=== PATIENT | female | born 1940 | race Caucasian/White ===

== ENCOUNTER 2018-03-10 11:26 | Inpatient (IN) | payer MEDICARE, BC ==
[~2018-03-10] VITALS: Ht 157.5 cm; Wt 66.0 kg
[2018-03-10] MEDS: ASPIRIN 81MG TABLET PO SCH (09:00)
[2018-03-10] MEDS ORDERED: ASPIRIN 81MG TABLET PO ONE (12:15)
[2018-03-10] MEDS: NITROGLYCERIN 0.4MG TABLET SL SL PRN ×2 (12:33→16:03)
[2018-03-10 12:41] LABS: BASOPHILS % 0.5 % (0.0-2.0); EOSINOPHILS % 0.5 % (0.0-5.0); HEMATOCRIT. 43.1 % (36.0-48.0); HEMOGLOBIN. 14.4 g/dL (12.0-16.0); MEAN PLATELET VOLUME 8.7 fl (7.4-10.4); PLATELET 254 x1000/uL (130-400); RED BLOOD CELL COUNT 4.79 mill/uL (4.2-5.4); RED CELL DISTRIBUTION WIDTH 14.4 % (11.6-14.6)
[2018-03-10 12:45] LABS: CHLORIDE 103 mEq/L (98-107)
[2018-03-10 12:49] LABS: D-DIMER 0.41 mg/L FEU (<0.50); INR 0.9; PARTIAL THROMBOPLASTIN TIME 23.2 sec (23.4-31.0); PROTHROMBIN TIME 9.4 sec (9.1-11.1)
[2018-03-10] MEDS ORDERED: CLONIDINE 0.1MG TABLET PO PRN ×2 (13:00→13:30)
[2018-03-10] MEDS ORDERED: DEXTROSE 50% WATER 50ML SYRINGE IV PRN (13:00)
[2018-03-10] MEDS ORDERED: DOCUSATE SODIUM 100MG CAPSULE PO PRN (13:30)
[2018-03-10] MEDS ORDERED: IPRATROPIUM/ALBUTEROL 0.5-3(2.5)MG/3ML NEB INH PRN (13:30)
[2018-03-10] MEDS ORDERED: ENOXAPARIN 40MG/0.4ML SYR SUBCUT SCH (13:30)
[2018-03-10] MEDS ORDERED: ACETAMINOPHEN 325MG TABLET PO PRN (13:30)
[2018-03-10] MEDS ORDERED: ONDANSETRON HCL 4MG/2ML INJ IV PRN (13:30)
[2018-03-10 14:17] LABS: CLARITY URINE CLEAR (CLEAR); COLOR URINE YELLOW (YELLOW); KETONES URINE NEGATIVE (NEGATIVE); LEUKOCYTE ESTERASE URINE NEGATIVE (NEGATIVE); NITRITE URINE NEGATIVE (NEGATIVE); OCCULT BLOOD URINE NEGATIVE (NEGATIVE); PROTEIN URINE NEGATIVE (NEGATIVE); SPECIFIC GRAVITY URINE 1.007 (1.005-1.030); UROBILINOGEN URINE 0.2 E.U./dL (0.2-1.0)
[2018-03-10] MEDS ORDERED: METOPROLOL TARTRATE 25MG TABLET PO NR (16:24)
[2018-03-10] MEDS ORDERED: ENOXAPARIN 60MG/0.6ML SYR SUBCUT NR (18:00)
[2018-03-10] MEDS ORDERED: DEXT 5%/0.9% NACL 1,000 ML IV SCH (18:30)
[2018-03-10 20:00] VITALS: BP 119/62
[2018-03-10] MEDS: INSULIN LISPRO 100 UNITS/ML SUBCUT SCH (21:00)
[2018-03-10] MEDS: BLOOD SUGAR DIAGNOSTIC STRIP TEST SCH (21:00)
[2018-03-10] MEDS: LOSARTAN POTASSIUM 50 MG TABLET PO SCH (22:11)
[2018-03-10] MEDS: HYDROCODONE/ACETAMINOPHEN 5/325MG TABLET PO PRN (22:12)
[2018-03-10] MEDS: AMLODIPINE 5MG TABLET PO SCH (22:12)
[2018-03-10] MEDS: METOPROLOL TARTRATE 50MG TABLET PO SCH (22:12)
[2018-03-10] MEDS: NITROGLYCERIN OINT 1GM/INCH UDPKT TD SCH (22:13)
[2018-03-10 22:44] VITALS: BP 119/62
[2018-03-10] MEDS ORDERED: ROSU5TAB PO (23:10)
[2018-03-10] MEDS ORDERED: AMLO10TA80 PO (23:10)
[2018-03-10] MEDS ORDERED: CLON-457 PO (23:10)
[2018-03-10] MEDS ORDERED: CLOP75TA33 PO (23:10)
[2018-03-10] MEDS ORDERED: LOSA25TA12 PO (23:10)
[2018-03-10] MEDS ORDERED: METF-815 PO (23:10)
[2018-03-10] MEDS ORDERED: METF-414 PO (23:10)
[2018-03-11] VITALS (18 sets, daily range): BP systolic 91–157; BP diastolic 46–83
[2018-03-11] MEDS: HYDROCODONE/ACETAMINOPHEN 5/325MG TABLET PO PRN ×4 (02:23→22:34)
[2018-03-11] MEDS: BLOOD SUGAR DIAGNOSTIC STRIP TEST SCH ×4 (05:55→20:18)
[2018-03-11] MEDS: NITROGLYCERIN OINT 1GM/INCH UDPKT TD SCH ×3 (05:55→12:36)
[2018-03-11] MEDS: INSULIN LISPRO 100 UNITS/ML SUBCUT SCH ×4 (06:29→21:00)
[2018-03-11 06:49] LABS: BASOPHILS % 0.6 % (0.0-2.0); EOSINOPHILS % 2.5 % (0.0-5.0); HEMATOCRIT. 38.6 % (36.0-48.0); HEMOGLOBIN. 13.1 g/dL (12.0-16.0); LYMPHOCYTES % 29.9 % (20.0-50.0); MEAN CORPUSCULAR HEMOGLOBIN 30.4 pg (28.0-32.0); MEAN CORPUSCULAR VOLUME 89.6 fL (81.0-99.0); MEAN PLATELET VOLUME 8.8 fl (7.4-10.4); MONOCYTES % 9.9 % (2.0-8.0); NEUTROPHILS % 57.1 % (40.0-76.0); PLATELET 230 x1000/uL (130-400); RED BLOOD CELL COUNT 4.31 mill/uL (4.2-5.4); RED CELL DISTRIBUTION WIDTH 14.2 % (11.6-14.6)
[2018-03-11 06:51] LABS: CHLORIDE 107 mEq/L (98-107)
[2018-03-11 06:59] LABS: CREATINE KINASE MB FRACTION 1.5 ng/mL (0.5-3.6)
[2018-03-11 07:04] LABS: CREATINE KINASE 77 IU/L (26-192); LDL CHOLESTEROL 31 mg/dL (5-100)
[2018-03-11 07:05] LABS: HDL CHOLESTEROL 49 mg/dL (40-59)
[2018-03-11] MEDS: LOSARTAN POTASSIUM 50 MG TABLET PO SCH (09:00)
[2018-03-11] MEDS: AMLODIPINE 5MG TABLET PO SCH ×2 (09:00→20:18)
[2018-03-11] MEDS: ASPIRIN 81MG TABLET PO SCH (09:20)
[2018-03-11] MEDS: METOPROLOL TARTRATE 50MG TABLET PO SCH ×2 (09:20→20:18)
[2018-03-11] MEDS ORDERED: IODIXANOL 320MG/ML 100 ML BOTTLE IV ONE (09:51)
[2018-03-11] MEDS ORDERED: LIDOCAINE HCL 1% 20ML VIAL (Pyxis) INJ ONE (09:51)
[2018-03-11] MEDS ORDERED: ASPIRIN/SOD BICARB/CITRIC ACID 324MG TAB EFF ONE (09:51)
[2018-03-11] MEDS ORDERED: IOHEXOL-300 100 ML BOTTLE ONE (09:52)
[2018-03-11] MEDS ORDERED: MIDAZOLAM HCL 2 MG/2 ML VIAL ONE (10:08)
[2018-03-11] MEDS ORDERED: FENTANYL CITRATE/PF 50MCG/ML 2ML VIAL ONE (10:09)
[2018-03-11] MEDS ORDERED: ATROPINE SULFATE 1MG/10ML SYR IV PRN (11:00)
[2018-03-11] MEDS ORDERED: CLOPIDOGREL 75MG TABLET PO SCH (11:00)
[2018-03-11] MEDS ORDERED: SODIUM CHLORIDE 0.45% 1,000 ML IV ONE (11:00)
[2018-03-11] MEDS ORDERED: MORPHINE SULFATE 4 MG/ML CPJ (NOT FOR IM USE) IV PRN (11:00)
[2018-03-11] MEDS ORDERED: ONDANSETRON HCL 4MG/2ML INJ IV PRN (11:00)
[2018-03-11] MEDS ORDERED: ACETAMINOPHEN 325MG TABLET PO PRN (11:00)
[2018-03-11] MEDS ORDERED: CLOPIDOGREL 75MG TABLET ONE (11:02)
[2018-03-11] MEDS ORDERED: HEPARIN SODIUM 1,000 UNIT/1ML VIAL IV ONE (13:44)
[2018-03-11] MEDS ORDERED: NICARDIPINE 100MCG/ML 10ML VIAL (CATH LAB) IV ONE (13:44)
[2018-03-11] MEDS ORDERED: ADENOSINE 12MCG/ML 10ML VIAL (CATH LAB) IV ONE (13:44)
[2018-03-11] MEDS ORDERED: NITROGLYCERIN 50MCG/ML 10ML VIAL (CATH LAB) IV ONE (13:44)
[2018-03-12] VITALS (7 sets, daily range): BP systolic 129–159; BP diastolic 48–68
[2018-03-12] MEDS: HYDROCODONE/ACETAMINOPHEN 5/325MG TABLET PO PRN ×2 (05:05→09:54)
[2018-03-12] MEDS: INSULIN LISPRO 100 UNITS/ML SUBCUT SCH (06:53)
[2018-03-12] MEDS: BLOOD SUGAR DIAGNOSTIC STRIP TEST SCH (06:53)
[2018-03-12 07:18] LABS: BASOPHILS % 0.6 % (0.0-2.0); EOSINOPHILS % 2.9 % (0.0-5.0); HEMATOCRIT. 38.4 % (36.0-48.0); HEMOGLOBIN. 12.5 g/dL (12.0-16.0); LYMPHOCYTES % 23.1 % (20.0-50.0); MEAN CORPUSCULAR HEMOGLOBIN 29.3 pg (28.0-32.0); MEAN CORPUSCULAR VOLUME 90.2 fL (81.0-99.0); MEAN PLATELET VOLUME 8.7 fl (7.4-10.4); MONOCYTES % 9.1 % (2.0-8.0); NEUTROPHILS % 64.3 % (40.0-76.0); PLATELET 210 x1000/uL (130-400); RED BLOOD CELL COUNT 4.26 mill/uL (4.2-5.4); RED CELL DISTRIBUTION WIDTH 14.8 % (11.6-14.6)
[2018-03-12 07:26] LABS: CHLORIDE 109 mEq/L (98-107)
[2018-03-12] MEDS: METOPROLOL TARTRATE 50MG TABLET PO SCH (08:16)
[2018-03-12] MEDS: AMLODIPINE 5MG TABLET PO SCH (08:17)
[2018-03-12] MEDS ORDERED: CLOPIDOGREL 75MG TABLET PO SCH (09:00)
[2018-03-12] MEDS ORDERED: ASPIRIN 325MG TABLET PO SCH (09:00)
== END 2018-03-12 11:20 | disposition home or self-care (01) | DRG 247 ==
LOC: ER 13:04 → 5WST 13:20 → EDBEDREQ 13:28 → EDBEDREQTM 13:28 → ENRESERV 17:14 → 3WST 03-11 11:20
PROVIDERS: ADMIT Internal Medicine; ATTEND Internal Medicine
PROC: 4A023N7 Measurement of Cardiac Sampling and Pressure, Left Heart, Percutaneous Approach (ICD-10-PCS; principal; 2018-03-11)
PROC: 027035Z Dilation of Coronary Artery, One Artery with Two Drug-eluting Intraluminal Devices, Percutaneous Approach (ICD-10-PCS; 2018-03-11)
PROC: B2111ZZ Fluoroscopy of Multiple Coronary Arteries using Low Osmolar Contrast (ICD-10-PCS; 2018-03-11)
PROC: B2181ZZ Fluoroscopy of Left Internal Mammary Bypass Graft using Low Osmolar Contrast (ICD-10-PCS; 2018-03-11)
PROC: B2121ZZ Fluoroscopy of Single Coronary Artery Bypass Graft using Low Osmolar Contrast (ICD-10-PCS; 2018-03-11)
DX: T82.858A Stenosis of other vascular prosthetic devices, implants and grafts, initial encounter (principal); I45.2 Bifascicular block; I25.810 Atherosclerosis of coronary artery bypass graft(s) without angina pectoris; I45.10 Unspecified right bundle-branch block; I10 Essential (primary) hypertension; E78.00 Pure hypercholesterolemia, unspecified; E11.9 Type 2 diabetes mellitus without complications; I65.22 Occlusion and stenosis of left carotid artery; Y83.8 Other surgical procedures as the cause of abnormal reaction of the patient, or of later complication, without mention of misadventure at the time of the procedure; M19.90 Unspecified osteoarthritis, unspecified site; I25.82 Chronic total occlusion of coronary artery; G89.29 Other chronic pain; Z95.1 Presence of aortocoronary bypass graft; Z88.0 Allergy status to penicillin; Z95.5 Presence of coronary angioplasty implant and graft; Y92.89 Other specified places as the place of occurrence of the external cause
CPT/HCPCS: 36415; 71045; 80048; 80061; 82550; 82553; 82962; 83735; 83880; 84443; 84484; 85347; 85379; 92937; 93005; 93455; 93970; 99285; C1769; C1874; C1887; C1893; J0153; J1644; J1650; J2250; J3010; J3490; Q9967

== ENCOUNTER 2018-04-01 06:25 | Day surgery (SDC) | payer MEDICARE, BC ==
[~2018-04-01] VITALS: Ht 157.5 cm; Wt 63.5 kg
[~2018-04-01 06:25] MED LIST: AMLO10TA80 PO; CLON-457 PO; CLOP75TA33 PO; LOSA25TA12 PO; METF-414 PO; METF-815 PO; ROSU5TAB PO
[2018-04-01] MEDS ORDERED: ASPIRIN/SOD BICARB/CITRIC ACID 324MG TAB EFF ONE (07:29)
[2018-04-01] MEDS ORDERED: ASPI-1158 MT (07:56)
[2018-04-01] MEDS ORDERED: ATEN100T MT (07:56)
[2018-04-01] MEDS ORDERED: LIDOCAINE HCL 1% 20ML VIAL (Pyxis) INJ ONE (08:03)
[2018-04-01] MEDS ORDERED: IOHEXOL-300 100 ML BOTTLE ONE (08:03)
[2018-04-01] MEDS ORDERED: IODIXANOL 320MG/ML 100 ML BOTTLE IV ONE (08:03)
[2018-04-01] MEDS ORDERED: MIDAZOLAM HCL 2 MG/2 ML VIAL ONE (08:39)
[2018-04-01] MEDS ORDERED: FENTANYL CITRATE/PF 50MCG/ML 2ML VIAL ONE (08:39)
[2018-04-01] MEDS ORDERED: NITROGLYCERIN OINT 1GM/INCH UDPKT TD ONE (09:08)
[2018-04-01] MEDS ORDERED: HEPARIN SODIUM 1,000 UNIT/1ML VIAL IV ONE (14:39)
[2018-04-01] MEDS ORDERED: NITROGLYCERIN 50MCG/ML 10ML VIAL (CATH LAB) IV ONE (15:16)
[2018-04-01] MEDS ORDERED: NICARDIPINE 100MCG/ML 10ML VIAL (CATH LAB) IV ONE (15:16)
[2018-04-03] MEDS ORDERED: LIDOCAINE HCL 1% 20ML VIAL (Pyxis) INJ ONE (08:16)
[2018-04-03] MEDS ORDERED: ASPIRIN/SOD BICARB/CITRIC ACID 324MG TAB EFF ONE (08:16)
[2018-04-03] MEDS ORDERED: MIDAZOLAM HCL 2 MG/2 ML VIAL ONE (08:17)
[2018-04-03] MEDS ORDERED: FENTANYL CITRATE/PF 50MCG/ML 2ML VIAL ONE (08:17)
== END 2018-04-01 14:00 | disposition home or self-care (01) ==
LOC: CCL 06:25
PROVIDERS: ATTEND Specialist
DX: I25.810 Atherosclerosis of coronary artery bypass graft(s) without angina pectoris (principal); E78.00 Pure hypercholesterolemia, unspecified; E11.69 Type 2 diabetes mellitus with other specified complication; I10 Essential (primary) hypertension; I65.29 Occlusion and stenosis of unspecified carotid artery; I45.10 Unspecified right bundle-branch block; Z95.1 Presence of aortocoronary bypass graft
CPT/HCPCS: 85347; 93455; 99152; 99153; C1725; C1769; C1887; C1893; J1644; J2250; J3010; J3490; Q9967; G0500

== ENCOUNTER 2018-04-03 07:32 | Inpatient (IN) | payer MEDICARE, BC ==
[~2018-04-03] VITALS: Ht 157.5 cm; Wt 68.5 kg
[2018-04-03] VITALS (14 sets, daily range): BP systolic 106–136; BP diastolic 36–91
[~2018-04-03 07:32] MED LIST changes: +ASPI-1158 MT; +ATEN100T MT
[2018-04-03] MEDS ORDERED: LOSA1TAB40 MT (08:33)
[2018-04-03] MEDS ORDERED: SPIR25TA MT (08:33)
[2018-04-03 08:45] LABS: HEMATOCRIT 39.6 % (36.0-48.0); HEMOGLOBIN 13.2 g/dL (12.0-16.0); MEAN CORPUSCULAR HEMOGLOBIN 29.7 pg (28.0-32.0); MEAN CORPUSCULAR VOLUME 89.3 fL (81.0-99.0); PLATELET 215 x1000/uL (130-400); RED BLOOD CELL COUNT 4.43 mill/uL (4.2-5.4); RED CELL DISTRIBUTION WIDTH 13.8 % (11.6-14.6)
[2018-04-03] MEDS ORDERED: LIDOCAINE HCL 1% 20ML VIAL (Pyxis) INJ ONE (08:48)
[2018-04-03 08:51] LABS: CHLORIDE 106 mEq/L (98-107)
[2018-04-03 08:58] LABS: PARTIAL THROMBOPLASTIN TIME 24.9 sec (23.4-31.0); PROTHROMBIN TIME 9.7 sec (9.1-11.1)
[2018-04-03] MEDS ORDERED: IOHEXOL-300 100 ML BOTTLE ONE (09:25)
[2018-04-03] MEDS ORDERED: IODIXANOL 320MG/ML 100 ML BOTTLE IV ONE (10:32)
[2018-04-03] MEDS ORDERED: CLOPIDOGREL 75MG TABLET ONE (10:44)
[2018-04-03] MEDS ORDERED: CLOPIDOGREL 75MG TABLET PO ONE (10:45)
[2018-04-03] MEDS ORDERED: DEXTROSE 50% WATER 50ML SYRINGE IV PRN (10:45)
[2018-04-03] MEDS ORDERED: ATROPINE SULFATE 1MG/10ML SYR IV PRN (10:45)
[2018-04-03] MEDS ORDERED: ACETAMINOPHEN 325MG TABLET PO PRN (10:45)
[2018-04-03] MEDS ORDERED: ONDANSETRON HCL 4MG/2ML INJ IV PRN (10:45)
[2018-04-03] MEDS ORDERED: SODIUM CHLORIDE 0.45% 1,000 ML IV ONE (11:30)
[2018-04-03] MEDS: BLOOD SUGAR DIAGNOSTIC STRIP TEST SCH ×3 (11:50→20:56)
[2018-04-03] MEDS: MORPHINE SULFATE 4 MG/ML CPJ (NOT FOR IM USE) IV PRN ×3 (11:54→22:59)
[2018-04-03] MEDS ORDERED: MIDAZOLAM HCL 2 MG/2 ML VIAL ONE (12:11)
[2018-04-03] MEDS ORDERED: FENTANYL CITRATE/PF 50MCG/ML 2ML VIAL ONE (12:11)
[2018-04-03] MEDS: INSULIN LISPRO 100 UNITS/ML SUBCUT SCH ×3 (12:20→21:00)
[2018-04-03] MEDS ORDERED: HEPARIN SODIUM 1,000 UNIT/1ML VIAL IV ONE (15:52)
[2018-04-03] MEDS ORDERED: NITROGLYCERIN 50MCG/ML 10ML VIAL (CATH LAB) IV ONE (16:10)
[2018-04-03] MEDS ORDERED: NICARDIPINE 100MCG/ML 10ML VIAL (CATH LAB) IV ONE (16:10)
[2018-04-03] MEDS ORDERED: ZOLPIDEM TARTRATE 5MG TABLET PO PRN (20:30)
[2018-04-04] VITALS: BP 121/66
[2018-04-04 02:01] VITALS: BP 122/96
[2018-04-04] MEDS: MORPHINE SULFATE 4 MG/ML CPJ (NOT FOR IM USE) IV PRN (03:26)
[2018-04-04 04:00] VITALS: BP 115/48
[2018-04-04 06:00] VITALS: BP 123/50
[2018-04-04] MEDS: BLOOD SUGAR DIAGNOSTIC STRIP TEST SCH (06:17)
[2018-04-04] MEDS: INSULIN LISPRO 100 UNITS/ML SUBCUT SCH (07:20)
[2018-04-04 07:28] LABS: CHLORIDE 103 mEq/L (98-107)
[2018-04-04 07:33] LABS: BASOPHILS % 0.3 % (0.0-2.0); EOSINOPHILS % 0.5 % (0.0-5.0); HEMATOCRIT. 37.4 % (36.0-48.0); HEMOGLOBIN. 12.5 g/dL (12.0-16.0); LYMPHOCYTES % 17.9 % (20.0-50.0); MEAN CORPUSCULAR HEMOGLOBIN 29.9 pg (28.0-32.0); MEAN CORPUSCULAR VOLUME 89.4 fL (81.0-99.0); MEAN PLATELET VOLUME 9.2 fl (7.4-10.4); MONOCYTES % 7.9 % (2.0-8.0); NEUTROPHILS % 73.4 % (40.0-76.0); PLATELET 200 x1000/uL (130-400); RED BLOOD CELL COUNT 4.18 mill/uL (4.2-5.4); RED CELL DISTRIBUTION WIDTH 13.9 % (11.6-14.6)
[2018-04-04 08:01] VITALS: BP 147/61
[2018-04-04] MEDS ORDERED: CLOPIDOGREL 75MG TABLET PO SCH (09:00)
[2018-04-04] MEDS ORDERED: ASPIRIN 325MG TABLET PO SCH (09:00)
[2018-04-04] MEDS ORDERED: METOPROLOL TARTRATE 100MG TABLET PO SCH (09:00)
[2018-04-04 09:33] VITALS: BP 132/69
== END 2018-04-04 10:10 | disposition home or self-care (01) | DRG 247 ==
LOC: CCL 07:32 → 3WST 07:33
PROVIDERS: ADMIT Specialist; ATTEND Specialist
PROC: 4A023N7 Measurement of Cardiac Sampling and Pressure, Left Heart, Percutaneous Approach (ICD-10-PCS; principal; 2018-04-03)
PROC: 027035Z Dilation of Coronary Artery, One Artery with Two Drug-eluting Intraluminal Devices, Percutaneous Approach (ICD-10-PCS; 2018-04-03)
PROC: 4A033BC Measurement of Arterial Pressure, Coronary, Percutaneous Approach (ICD-10-PCS; 2018-04-03)
PROC: B2111ZZ Fluoroscopy of Multiple Coronary Arteries using Low Osmolar Contrast (ICD-10-PCS; 2018-04-03)
DX: I25.10 Atherosclerotic heart disease of native coronary artery without angina pectoris (principal); I10 Essential (primary) hypertension; E78.00 Pure hypercholesterolemia, unspecified; I65.22 Occlusion and stenosis of left carotid artery; E11.9 Type 2 diabetes mellitus without complications; M79.10 Myalgia, unspecified site; I45.10 Unspecified right bundle-branch block; M48.061 Spinal stenosis, lumbar region without neurogenic claudication; G89.29 Other chronic pain; Z95.1 Presence of aortocoronary bypass graft; Z88.0 Allergy status to penicillin
CPT/HCPCS: 36415; 80048; 82962; 85027; 85347; 92928; 93005; 93454; 93455; 93571; 99152; 99153; C1725; C1760; C1769; C1874; C1887; C1893; J1644; J2250; J2270; J3010; J3490; Q9967; G0500

== ENCOUNTER 2018-08-03 08:03 | Inpatient (IN) | payer MEDICARE, BC ==
[2018-08-03] VITALS (8 sets, daily range): BP systolic 105–150; BP diastolic 41–87
[~2018-08-03] VITALS: Ht 157.5 cm; Wt 70.8 kg
[~2018-08-03 08:03] MED LIST changes: +LOSA1TAB40 MT; -LOSA25TA12 PO; -METF-414 PO; +SPIR25TA MT
[2018-08-03 08:41] LABS: BASOPHILS % 0.6 % (0.0-2.0); EOSINOPHILS % 1.2 % (0.0-5.0); HEMATOCRIT. 40.1 % (36.0-48.0); HEMOGLOBIN. 13.5 g/dL (12.0-16.0); LYMPHOCYTES % 26.9 % (20.0-50.0); MEAN PLATELET VOLUME 8.6 fl (7.4-10.4); MONOCYTES % 10.3 % (2.0-8.0); PLATELET 211 x1000/uL (130-400); RED CELL DISTRIBUTION WIDTH 13.9 % (11.6-14.6)
[2018-08-03] MEDS ORDERED: ONDANSETRON HCL 4MG/2ML INJ IV STA (08:41)
[2018-08-03] MEDS ORDERED: MORPHINE SULFATE 4 MG/ML CPJ (NOT FOR IM USE) IV STA (08:41)
[2018-08-03 08:44] LABS: CHLORIDE 106 mEq/L (98-107)
[2018-08-03] MEDS ORDERED: NITROGLYCERIN OINT 1GM/INCH UDPKT TD ONE (08:45)
[2018-08-03] MEDS ORDERED: ASPIRIN 81MG TABLET PO ONE (08:45)
[2018-08-03 08:47] LABS: INR 0.9; PROTHROMBIN TIME 9.5 sec (9.6-11.0)
[2018-08-03] MEDS ORDERED: SODIUM CHLORIDE 0.9% 500 ML IV ONE (09:22)
[2018-08-03] MEDS ORDERED: SODIUM CHLORIDE 0.45% 1,000 ML IV ONE ×2 (11:45→15:00)
[2018-08-03] MEDS: AMLODIPINE 5MG TABLET PO SCH ×2 (12:14→21:00)
[2018-08-03] MEDS ORDERED: ASPIRIN/SOD BICARB/CITRIC ACID 324MG TAB EFF ONE (12:38)
[2018-08-03] MEDS ORDERED: LIDOCAINE HCL 1% 20ML VIAL (Pyxis) INJ ONE (12:38)
[2018-08-03] MEDS ORDERED: IODIXANOL 320MG/ML 100 ML BOTTLE IV ONE (12:38)
[2018-08-03] MEDS ORDERED: MIDAZOLAM HCL 2 MG/2 ML VIAL ONE ×2 (12:38→13:25)
[2018-08-03] MEDS ORDERED: ONDANSETRON HCL 4MG/2ML INJ IV PRN ×2 (13:00→15:00)
[2018-08-03] MEDS ORDERED: FENTANYL CITRATE/PF 50MCG/ML 2ML VIAL ONE (13:06)
[2018-08-03] MEDS ORDERED: NICARDIPINE 100MCG/ML 10ML VIAL (CATH LAB) IV ONE (13:29)
[2018-08-03] MEDS ORDERED: NITROGLYCERIN 50MCG/ML 10ML VIAL (CATH LAB) IV ONE (13:29)
[2018-08-03] MEDS ORDERED: ADENOSINE 12MCG/ML 10ML VIAL (CATH LAB) IV ONE (13:29)
[2018-08-03] MEDS ORDERED: HEPARIN SODIUM 1,000 UNIT/1ML VIAL IV ONE (13:29)
[2018-08-03] MEDS ORDERED: POTASSIUM CHLORIDE INJ 20 MEQ in DEXT 5%/0.2% NACL 1,000 ML IV SCH (13:30)
[2018-08-03] MEDS ORDERED: DEXT 5%/0.2% NACL KCL 20MEQ/L 1,000 ML IV ONE (13:30)
[2018-08-03] MEDS ORDERED: IOHEXOL-300 100 ML BOTTLE ONE (13:39)
[2018-08-03] MEDS ORDERED: MORPHINE SULFATE 2 MG/ML CPJ (NOT FOR IM USE) IV PRN (15:00)
[2018-08-03] MEDS ORDERED: CLOPIDOGREL 75MG TABLET PO NR (15:00)
[2018-08-03] MEDS ORDERED: ATROPINE SULFATE 1MG/10ML SYR IV PRN (15:00)
[2018-08-03] MEDS ORDERED: ACETAMINOPHEN 325MG TABLET PO PRN (15:00)
[2018-08-03] MEDS ORDERED: CLOPIDOGREL 75MG TABLET ONE (15:05)
[2018-08-03] MEDS: NITROGLYCERIN OINT 1GM/INCH UDPKT TD SCH ×2 (17:53→18:00)
[2018-08-03] MEDS: MORPHINE SULFATE 2 MG/ML CPJ (NOT FOR IM USE) IV PRN (20:42)
[2018-08-04] VITALS (12 sets, daily range): BP systolic 95–144; BP diastolic 36–71
[2018-08-04] MEDS: NITROGLYCERIN OINT 1GM/INCH UDPKT TD SCH ×3 (00:23→12:13)
[2018-08-04] MEDS: MORPHINE SULFATE 2 MG/ML CPJ (NOT FOR IM USE) IV PRN ×4 (00:34→14:55)
[2018-08-04 06:38] LABS: BASOPHILS % 0.4 % (0.0-2.0); EOSINOPHILS % 0.1 % (0.0-5.0); HEMATOCRIT. 30.4 % (36.0-48.0); HEMOGLOBIN. 10.5 g/dL (12.0-16.0); LYMPHOCYTES % 16.3 % (20.0-50.0); MEAN CORPUSCULAR HEMOGLOBIN 30.6 pg (28.0-32.0); MEAN CORPUSCULAR VOLUME 88.5 fL (81.0-99.0); MEAN PLATELET VOLUME 8.9 fl (7.4-10.4); MONOCYTES % 7.8 % (2.0-8.0); NEUTROPHILS % 75.4 % (40.0-76.0); PLATELET 179 x1000/uL (130-400); RED BLOOD CELL COUNT 3.44 mill/uL (4.2-5.4)
[2018-08-04 07:00] LABS: CHLORIDE 103 mEq/L (98-107)
[2018-08-04 07:15] LABS: HDL CHOLESTEROL 34 mg/dL (40-59)
[2018-08-04 07:16] LABS: LDL CHOLESTEROL 50 mg/dL (5-100)
[2018-08-04] MEDS: AMLODIPINE 5MG TABLET PO SCH (09:00)
[2018-08-04] MEDS ORDERED: CLOPIDOGREL 75MG TABLET PO SCH (09:00)
[2018-08-04] MEDS ORDERED: ASPIRIN 325MG TABLET PO SCH (09:00)
[2018-08-04] MEDS ORDERED: ATENOLOL 50 MG TABLET PO NR (17:04)
[2018-08-04] MEDS ORDERED: METOPROLOL TARTRATE 50MG TABLET PO NR (17:06)
[2018-08-04 17:23] LABS: HEMATOCRIT 32.9 % (36.0-48.0); HEMOGLOBIN 11.2 g/dL (12.0-16.0)
== END 2018-08-04 18:30 | disposition home or self-care (01) | DRG 251 ==
LOC: ER 09:11 → EDBEDREQ 09:15 → ENRESERV 10:15 → 5WST 11:46 → 3WST 15:36
PROVIDERS: ADMIT Hospitalist; ATTEND Hospitalist
PROC: 4A023N7 Measurement of Cardiac Sampling and Pressure, Left Heart, Percutaneous Approach (ICD-10-PCS; principal; 2018-08-03)
PROC: 02703ZZ Dilation of Coronary Artery, One Artery, Percutaneous Approach (ICD-10-PCS; 2018-08-03)
PROC: B2121ZZ Fluoroscopy of Single Coronary Artery Bypass Graft using Low Osmolar Contrast (ICD-10-PCS; 2018-08-03)
PROC: B2111ZZ Fluoroscopy of Multiple Coronary Arteries using Low Osmolar Contrast (ICD-10-PCS; 2018-08-03)
DX: T82.855A Stenosis of coronary artery stent, initial encounter (principal); I25.110 Atherosclerotic heart disease of native coronary artery with unstable angina pectoris; E78.5 Hyperlipidemia, unspecified; E78.00 Pure hypercholesterolemia, unspecified; I10 Essential (primary) hypertension; Z96.641 Presence of right artificial hip joint; I45.10 Unspecified right bundle-branch block; G89.29 Other chronic pain; M54.5 Low back pain; I65.29 Occlusion and stenosis of unspecified carotid artery; E11.9 Type 2 diabetes mellitus without complications; M48.00 Spinal stenosis, site unspecified; Y83.8 Other surgical procedures as the cause of abnormal reaction of the patient, or of later complication, without mention of misadventure at the time of the procedure; D64.9 Anemia, unspecified; Z95.1 Presence of aortocoronary bypass graft; Z95.5 Presence of coronary angioplasty implant and graft; Z79.899 Other long term (current) drug therapy; Z79.84 Long term (current) use of oral hypoglycemic drugs; Z88.0 Allergy status to penicillin; Z87.891 Personal history of nicotine dependence; Y92.89 Other specified places as the place of occurrence of the external cause
CPT/HCPCS: 36415; 71045; 76857; 80048; 80061; 83735; 83880; 84443; 84484; 85014; 85018; 85347; 92937; 93005; 93455; 93970; 96374; 96375; 99285; C1725; C1769; C1887; C1893; J0153; J1644; J2250; J2270; J2405; J3010; J3480; J3490; J7040; J7050; L1830; Q9967; A4315

== ENCOUNTER 2019-02-19 06:32 | Inpatient (IN) | payer MEDICARE, BC ==
[2019-02-19] VITALS (26 sets, daily range): BP systolic 100–130; BP diastolic 38–76
[~2019-02-19] VITALS: Ht 167.6 cm; Wt 66.7 kg
[~2019-02-19 06:32] MED LIST changes: -ASPI-1158 MT
[2019-02-19] MEDS ORDERED: UBID200C37 MT (07:41)
[2019-02-19] MEDS ORDERED: EVOL140P SQ (07:41)
[2019-02-19] MEDS ORDERED: ASPI-1393 MT (07:41)
[2019-02-19] MEDS ORDERED: CALC-1098 MT (07:41)
[2019-02-19] MEDS ORDERED: LIDOCAINE HCL 1% 20ML VIAL (Pyxis) INJ ONE (07:47)
[2019-02-19] MEDS ORDERED: IODIXANOL 320MG/ML 100 ML BOTTLE IV ONE ×2 (07:49→10:02)
[2019-02-19] MEDS ORDERED: MIDAZOLAM HCL 2 MG/2 ML VIAL ONE (08:59)
[2019-02-19] MEDS ORDERED: FENTANYL CITRATE/PF 50MCG/ML 2ML VIAL ONE (08:59)
[2019-02-19] MEDS ORDERED: ATROPINE SULFATE 0.1MG/ML 10ML DISP.SYRIN ONE (09:14)
[2019-02-19] MEDS ORDERED: IOHEXOL-300 100 ML BOTTLE ONE (09:28)
[2019-02-19] MEDS ORDERED: HEPARIN SODIUM 1,000 UNIT/1ML VIAL IV ONE (10:00)
[2019-02-19] MEDS ORDERED: PHENYLEPHRINE 100MCG/ML 10ML VIAL (CATH LAB) IV ONE (10:00)
[2019-02-19] MEDS ORDERED: CLOPIDOGREL 75MG TABLET ONE (10:08)
[2019-02-19] MEDS ORDERED: ASPIRIN 325MG EC TABLET PO ONE (10:09)
[2019-02-19] MEDS ORDERED: ATROPINE SULFATE 1MG/10ML SYR IV PRN (10:30)
[2019-02-19] MEDS ORDERED: ACETAMINOPHEN 325MG TABLET PO PRN (10:30)
[2019-02-19] MEDS ORDERED: ONDANSETRON HCL 4MG/2ML INJ IV PRN (10:30)
[2019-02-19] MEDS: ACETAMINOPHEN WITH CODEINE 300/30MG TABLET PO PRN ×3 (12:05→20:32)
[2019-02-19] MEDS ORDERED: ZOLPIDEM TARTRATE 5MG TABLET PO PRN (20:15)
[2019-02-20] VITALS (18 sets, daily range): BP systolic 101–132; BP diastolic 16–78
[2019-02-20] MEDS: ACETAMINOPHEN WITH CODEINE 300/30MG TABLET PO PRN (03:13)
[2019-02-20 05:28] LABS: CHLORIDE 106 mEq/L (98-107)
[2019-02-20 05:39] LABS: BASOPHILS % 0.6 % (0.0-2.0); EOSINOPHILS % 1.7 % (0.0-5.0); HEMATOCRIT. 35.9 % (36.0-48.0); LYMPHOCYTES % 22.7 % (20.0-50.0); MEAN CORPUSCULAR HEMOGLOBIN 30.2 pg (28.0-32.0); MEAN CORPUSCULAR VOLUME 90.4 fL (81.0-99.0); PLATELET 162 x1000/uL (130-400); RED BLOOD CELL COUNT 3.97 mill/uL (4.2-5.4); RED CELL DISTRIBUTION WIDTH 14.1 % (11.6-14.6)
[2019-02-20] MEDS ORDERED: CLOPIDOGREL 75MG TABLET PO SCH (09:00)
[2019-02-20] MEDS ORDERED: ASPIRIN 325MG TABLET PO SCH (09:00)
== END 2019-02-20 10:30 | disposition home or self-care (01) | DRG 36 ==
LOC: CCL 06:32 → CVICU 06:33
PROVIDERS: ADMIT Specialist; ATTEND Specialist
PROC: 037L3DZ Dilation of Left Internal Carotid Artery with Intraluminal Device, Percutaneous Approach (ICD-10-PCS; principal; 2019-02-19)
PROC: B314YZZ Fluoroscopy of Left Common Carotid Artery using Other Contrast (ICD-10-PCS; 2019-02-19)
PROC: B31RYZZ Fluoroscopy of Intracranial Arteries using Other Contrast (ICD-10-PCS; 2019-02-19)
DX: I65.22 Occlusion and stenosis of left carotid artery (principal); I45.10 Unspecified right bundle-branch block; M48.061 Spinal stenosis, lumbar region without neurogenic claudication; E78.5 Hyperlipidemia, unspecified; I10 Essential (primary) hypertension; E11.9 Type 2 diabetes mellitus without complications; J44.9 Chronic obstructive pulmonary disease, unspecified; Z82.49 Family history of ischemic heart disease and other diseases of the circulatory system; Z87.891 Personal history of nicotine dependence; Z95.1 Presence of aortocoronary bypass graft; Z86.73 Personal history of transient ischemic attack (TIA), and cerebral infarction without residual deficits
CPT/HCPCS: 36227; 36415; 37215; 80048; 85347; 93005; C1725; C1760; C1769; C1876; C1884; C1893; C1894; J0461; J1644; J2250; J2370; J3010; J3490; Q9967; A4315

== ENCOUNTER 2020-10-25 07:28 | Inpatient (IN) | payer MEDICARE, BC ==
[~2020-10-25] VITALS: Ht 157.5 cm; Wt 64.1 kg
[2020-10-25] VITALS (12 sets, daily range): BP systolic 131–157; BP diastolic 56–79
[~2020-10-25 07:28] MED LIST changes: +ASPI-1497 MT; +CALC-1098 MT; +EVOL140P3 SQ; -METF-815 PO; +METF-873 PO; +UBID200C37 MT
[2020-10-25] MEDS ORDERED: METO-539 MT (08:52)
[2020-10-25] MEDS ORDERED: BIOT5TAB MT (08:52)
[2020-10-25] MEDS ORDERED: METO100T16 MT (08:52)
[2020-10-25] MEDS ORDERED: SODIUM CHLORIDE 0.45% 500 ML IV ONE (10:00)
[2020-10-25] MEDS ORDERED: FENTANYL CITRATE/PF 50MCG/ML 2ML VIAL ONE ×3 (10:07→11:52)
[2020-10-25] MEDS ORDERED: MIDAZOLAM HCL 2 MG/2 ML VIAL ONE ×3 (10:07→11:53)
[2020-10-25] MEDS ORDERED: IODIXANOL 320MG/ML 100 ML BOTTLE IV ONE ×2 (10:08→11:37)
[2020-10-25] MEDS ORDERED: LIDOCAINE HCL 1% 20ML VIAL (Pyxis) INJ ONE (10:11)
[2020-10-25] MEDS ORDERED: ONDANSETRON HCL 4MG/2ML INJ IV PRN (12:00)
[2020-10-25] MEDS ORDERED: ATROPINE SULFATE 1MG/10ML SYR IV PRN (12:00)
[2020-10-25] MEDS ORDERED: CLONIDINE 0.1MG TABLET PO PRN (12:15)
[2020-10-25] MEDS ORDERED: DEXTROSE 50% WATER 50ML SYRINGE IV PRN (12:15)
[2020-10-25] MEDS: INSULIN LISPRO 100 UNITS/ML SUBCUT SCH ×3 (13:00→21:47)
[2020-10-25] MEDS: BLOOD SUGAR DIAGNOSTIC STRIP TEST SCH ×3 (13:00→20:35)
[2020-10-25] MEDS ORDERED: HEPARIN SODIUM 1,000 UNIT/1ML VIAL IV ONE (13:39)
[2020-10-25] MEDS ORDERED: MORPHINE SULFATE 2 MG/ML CPJ (NOT FOR IM USE) IV PRN ×2 (14:00)
[2020-10-25] MEDS ORDERED: NALOXONE HCL 0.4MG/ML VIAL IV PRN (14:15)
[2020-10-25] MEDS ORDERED: SODIUM CHLORIDE 0.45% 1,000 ML IV ONE (14:30)
[2020-10-25] MEDS: CLONIDINE 0.1MG TABLET PO SCH (17:15)
[2020-10-25] MEDS: AMLODIPINE 5MG TABLET PO SCH (21:48)
[2020-10-25] MEDS: ACETAMINOPHEN 325MG TABLET PO PRN (22:01)
[2020-10-26] VITALS (8 sets, daily range): BP systolic 126–153; BP diastolic 54–81
[2020-10-26] MEDS: ACETAMINOPHEN 325MG TABLET PO PRN ×2 (03:33→07:47)
[2020-10-26] MEDS: BLOOD SUGAR DIAGNOSTIC STRIP TEST SCH (06:28)
[2020-10-26] MEDS: INSULIN LISPRO 100 UNITS/ML SUBCUT SCH (06:28)
[2020-10-26 08:13] LABS: BASOPHILS % 0.4 % (0.0-2.0); EOSINOPHILS % 1.8 % (0.0-5.0); HEMATOCRIT. 39.2 % (36.0-48.0); HEMOGLOBIN. 12.9 g/dL (12.0-16.0); MEAN CORPUSCULAR HEMOGLOBIN 30.2 pg (28.0-32.0); MEAN CORPUSCULAR VOLUME 91.7 fL (81.0-99.0); MEAN PLATELET VOLUME 8.8 fl (7.4-10.4); MONOCYTES % 10.5 % (2.0-8.0); NEUTROPHILS % 66.3 % (40.0-76.0); PLATELET 184 x1000/uL (130-400); RED BLOOD CELL COUNT 4.27 mill/uL (4.2-5.4)
[2020-10-26] MEDS: CLONIDINE 0.1MG TABLET PO SCH (08:25)
[2020-10-26] MEDS: AMLODIPINE 5MG TABLET PO SCH (08:25)
[2020-10-26 08:42] LABS: CHLORIDE 106 mEq/L (98-107)
[2020-10-26] MEDS ORDERED: ASPIRIN 81MG TABLET PO SCH (09:00)
[2020-10-26] MEDS ORDERED: METOPROLOL TARTRATE 100MG TABLET PO SCH (09:00)
[2020-10-26] MEDS ORDERED: CLOPIDOGREL 75MG TABLET PO SCH (09:00)
[2020-10-26] MEDS ORDERED: LOSARTAN POTASSIUM 50 MG TABLET PO SCH (09:00)
== END 2020-10-26 12:30 | disposition home or self-care (01) | DRG 301 ==
LOC: CCL 07:28 → 3WST 07:29
PROVIDERS: ADMIT Specialist; ATTEND Specialist
PROC: B41G1ZZ Fluoroscopy of Left Lower Extremity Arteries using Low Osmolar Contrast (ICD-10-PCS; principal; 2020-10-25)
PROC: B41F1ZZ Fluoroscopy of Right Lower Extremity Arteries using Low Osmolar Contrast (ICD-10-PCS; 2020-10-25)
PROC: B51B1ZZ Fluoroscopy of Right Lower Extremity Veins using Low Osmolar Contrast (ICD-10-PCS; 2020-10-25)
DX: I70.209 Unspecified atherosclerosis of native arteries of extremities, unspecified extremity (principal); I65.29 Occlusion and stenosis of unspecified carotid artery; E78.5 Hyperlipidemia, unspecified; I10 Essential (primary) hypertension; I25.10 Atherosclerotic heart disease of native coronary artery without angina pectoris; Z79.02 Long term (current) use of antithrombotics/antiplatelets; Z79.82 Long term (current) use of aspirin; Z79.84 Long term (current) use of oral hypoglycemic drugs; Z79.899 Other long term (current) drug therapy; Z95.1 Presence of aortocoronary bypass graft
CPT/HCPCS: 36245; 36415; 75710; 80048; 82962; 83036; 85025; 85347; 93005; C1760; C1769; C1887; C1893; J1644; J1815; J2250; J2270; J3010; J3490; Q9967; A4315

== ENCOUNTER 2021-02-21 06:47 | Inpatient (IN) | payer MEDICARE, BC ==
[2021-02-21] VITALS (7 sets, daily range): BP systolic 125–161; BP diastolic 42–93
[~2021-02-21] VITALS: Ht 157.5 cm; Wt 65.5 kg
[~2021-02-21 06:47] MED LIST changes: -ATEN100T MT; +BIOT5TAB MT; +METO-539 MT; +METO100T16 MT; -UBID200C37 MT
[2021-02-21] MEDS ORDERED: ASPIRIN/SOD BICARB/CITRIC ACID 324MG TAB EFF ONE (07:14)
[2021-02-21] MEDS ORDERED: UBID200C37 MT (07:44)
[2021-02-21] MEDS ORDERED: CILO100T MT (07:44)
[2021-02-21] MEDS ORDERED: NICARDIPINE 100MCG/ML 10ML VIAL (CATH LAB) IV ONE (07:49)
[2021-02-21] MEDS ORDERED: NITROGLYCERIN 50MCG/ML 10ML VIAL (CATH LAB) IV ONE (07:49)
[2021-02-21] MEDS ORDERED: HEPARIN SODIUM 1,000 UNIT/1ML VIAL IV ONE (07:49)
[2021-02-21] MEDS ORDERED: LIDOCAINE HCL 1% 20ML VIAL (Pyxis) INJ ONE ×2 (08:15→08:28)
[2021-02-21] MEDS ORDERED: IODIXANOL 320MG/ML 100 ML BOTTLE IV ONE ×2 (08:15→09:21)
[2021-02-21] MEDS ORDERED: IOHEXOL-300 100 ML BOTTLE ONE (08:15)
[2021-02-21] MEDS ORDERED: FENTANYL CITRATE/PF 50MCG/ML 2ML VIAL ONE ×2 (08:16→08:47)
[2021-02-21] MEDS ORDERED: MIDAZOLAM HCL 2 MG/2 ML VIAL ONE ×2 (08:16→08:47)
[2021-02-21] MEDS ORDERED: DIPHENHYDRAMINE 50MG/ML VIAL ONE (09:13)
[2021-02-21] MEDS ORDERED: CLOPIDOGREL 75MG TABLET ONE (09:53)
[2021-02-21] MEDS ORDERED: PROTAMINE SULFATE 10MG/ML VIAL 25ML IV NR (11:15)
[2021-02-21] MEDS ORDERED: ONDANSETRON HCL 4MG/2ML INJ IV PRN (11:30)
[2021-02-21] MEDS ORDERED: CLOPIDOGREL 75MG TABLET PO NR (11:30)
[2021-02-21] MEDS ORDERED: SODIUM CHLORIDE 0.45% 1,000 ML IV ONE (11:30)
[2021-02-21] MEDS ORDERED: MORPHINE SULFATE 2 MG/ML CPJ (NOT FOR IM USE) IV PRN (11:30)
[2021-02-21] MEDS ORDERED: ATROPINE SULFATE 1MG/10ML SYR IV PRN (11:30)
[2021-02-21] MEDS ORDERED: DEXTROSE 50% WATER 50ML SYRINGE IV PRN (11:45)
[2021-02-21] MEDS ORDERED: NALOXONE HCL 0.4MG/ML VIAL IV PRN (11:45)
[2021-02-21] MEDS: INSULIN LISPRO 100 UNITS/ML SUBCUT SCH ×3 (13:00→21:00)
[2021-02-21] MEDS: BLOOD SUGAR DIAGNOSTIC STRIP TEST SCH ×2 (16:50→21:00)
[2021-02-21] MEDS: LOSARTAN POTASSIUM 50 MG TABLET PO SCH (17:24)
[2021-02-21] MEDS ORDERED: ZOLPIDEM TARTRATE 5MG TABLET PO PRN (19:45)
[2021-02-21] MEDS: AMLODIPINE 5MG TABLET PO SCH (22:02)
[2021-02-22] VITALS (8 sets, daily range): BP systolic 137–162; BP diastolic 54–79
[2021-02-22] MEDS: ACETAMINOPHEN 325MG TABLET PO PRN ×2 (03:33→08:27)
[2021-02-22] MEDS: BLOOD SUGAR DIAGNOSTIC STRIP TEST SCH (06:16)
[2021-02-22 06:28] LABS: CHLORIDE 110 mEq/L (98-107)
[2021-02-22 06:34] LABS: BASOPHILS % 0.3 % (0.0-2.0); EOSINOPHILS % 1.2 % (0.0-5.0); HEMATOCRIT. 36.8 % (36.0-48.0); HEMOGLOBIN. 12.3 g/dL (12.0-16.0); LYMPHOCYTES % 21.2 % (20.0-50.0); MEAN CORPUSCULAR VOLUME 92.4 fL (81.0-99.0); MEAN PLATELET VOLUME 8.9 fl (7.4-10.4); MONOCYTES % 10.5 % (2.0-8.0); NEUTROPHILS % 66.8 % (40.0-76.0); PLATELET 183 x1000/uL (130-400); RED BLOOD CELL COUNT 3.98 mill/uL (4.2-5.4); RED CELL DISTRIBUTION WIDTH 13.9 % (11.6-14.6)
[2021-02-22] MEDS: INSULIN LISPRO 100 UNITS/ML SUBCUT SCH (07:02)
[2021-02-22] MEDS: LOSARTAN POTASSIUM 50 MG TABLET PO SCH (08:23)
[2021-02-22] MEDS: AMLODIPINE 5MG TABLET PO SCH (08:24)
[2021-02-22] MEDS ORDERED: METOPROLOL TARTRATE 50MG TABLET PO SCH (09:00)
[2021-02-22] MEDS ORDERED: ASPIRIN 81MG TABLET PO SCH (09:00)
[2021-02-22] MEDS ORDERED: CLOPIDOGREL 75MG TABLET PO SCH (09:00)
== END 2021-02-22 11:20 | disposition home or self-care (01) | DRG 251 ==
LOC: CCL 06:47 → 3WST 06:48
PROVIDERS: ADMIT Specialist; ATTEND Specialist
PROC: B2111ZZ Fluoroscopy of Multiple Coronary Arteries using Low Osmolar Contrast (ICD-10-PCS; principal; 2021-02-21)
PROC: 02703ZZ Dilation of Coronary Artery, One Artery, Percutaneous Approach (ICD-10-PCS; 2021-02-21)
PROC: B41F1ZZ Fluoroscopy of Right Lower Extremity Arteries using Low Osmolar Contrast (ICD-10-PCS; 2021-02-21)
PROC: B2171ZZ Fluoroscopy of Right Internal Mammary Bypass Graft using Low Osmolar Contrast (ICD-10-PCS; 2021-02-21)
PROC: B241ZZ3 Ultrasonography of Multiple Coronary Arteries, Intravascular (ICD-10-PCS; 2021-02-21)
PROC: 02F03ZZ Fragmentation in Coronary Artery, One Artery, Percutaneous Approach (ICD-10-PCS; 2021-02-21)
DX: I25.10 Atherosclerotic heart disease of native coronary artery without angina pectoris (principal); D64.9 Anemia, unspecified; E78.5 Hyperlipidemia, unspecified; I10 Essential (primary) hypertension; I70.209 Unspecified atherosclerosis of native arteries of extremities, unspecified extremity; Z79.82 Long term (current) use of aspirin; Z79.02 Long term (current) use of antithrombotics/antiplatelets; Z79.899 Other long term (current) drug therapy; Z79.84 Long term (current) use of oral hypoglycemic drugs; Z95.1 Presence of aortocoronary bypass graft; Z88.0 Allergy status to penicillin
CPT/HCPCS: 36415; 80048; 82962; 85025; 85347; 86850; 86900; 92920; 92978; 93005; 93459; C1726; C1753; C1760; C1769; C1887; C1893; J1200; J1644; J2250; J2720; J3010; J3490; Q9967; A4315; C1761

== ENCOUNTER 2021-05-04 18:17 | Emergency (ER) | payer BC, MEDICARE ==
[~2021-05-04] VITALS: Ht 157.5 cm; Wt 62.0 kg
[~2021-05-04 18:17] MED LIST changes: +CILO100T MT; +UBID200C37 MT
[2021-05-04] MEDS ORDERED: ACETAMINOPHEN 325MG TABLET PO ONE (19:15)
[2021-05-04 21:10] VITALS: BP 158/69
== END 2021-05-04 21:10 | disposition home or self-care (01) ==
LOC: ER 18:17
DX: S00.03XA Contusion of scalp, initial encounter (principal); R07.81 Pleurodynia; M25.551 Pain in right hip; M54.89 Other dorsalgia; W10.8XXA Fall (on) (from) other stairs and steps, initial encounter; Y93.01 Activity, walking, marching and hiking; Y92.018 Other place in single-family (private) house as the place of occurrence of the external cause; Z96.641 Presence of right artificial hip joint; I10 Essential (primary) hypertension; I25.10 Atherosclerotic heart disease of native coronary artery without angina pectoris; M47.816 Spondylosis without myelopathy or radiculopathy, lumbar region; I25.2 Old myocardial infarction; Z95.5 Presence of coronary angioplasty implant and graft; Z79.01 Long term (current) use of anticoagulants; Z79.899 Other long term (current) drug therapy; Z95.1 Presence of aortocoronary bypass graft; Z88.0 Allergy status to penicillin
CPT/HCPCS: 71101; 73502; 99284

== ENCOUNTER → 2024-08-26 | Outpatient (CLI) | payer MEDICARE, BC ==
[~2024-08-26] MED LIST changes: -CILO100T MT; +CILO100T27 MT; -CLON-457 PO; +CLON-493 PO; +METF-1149 PO; -METF-873 PO
== END | disposition home or self-care (01) ==
LOC: RAD 10:42
PROVIDERS: ATTEND Internal Medicine Critical Care Medicine
DX: J44.9 Chronic obstructive pulmonary disease, unspecified (principal); R91.8 Other nonspecific abnormal finding of lung field; R06.02 Shortness of breath; Z95.1 Presence of aortocoronary bypass graft
CPT/HCPCS: 71046